=== PATIENT | male | born 1970 ===

== ENCOUNTER 2024-11-22 09:15 | Inpatient (IN) | payer OTHER ==
[~2024-11-22] VITALS: Ht 177.8 cm; Wt 112.0 kg
[2024-11-23] MEDS ORDERED: HydrOXYzine Pamoate 50 MG Cap PO PRN (06:55)
[2024-11-23] MEDS ORDERED: LORazepam 2 MG Tab PO PRN (06:55)
[2024-11-23] MEDS ORDERED: OLANZapine ODT 10 MG Tab MM PRN (06:55)
[2024-11-23] MEDS ORDERED: Ibuprofen 600 MG Tab PO PRN (06:55)
[2024-11-23] MEDS ORDERED: Acetaminophen 325 MG TABLET PO PRN (07:00)
[2024-11-23] MEDS ORDERED: TraZODone HCl 50 MG Tab PO PRN (07:00)
[2024-11-23] MEDS ORDERED: FLU VACC TS2024-25(6MOS UP)/PF 45 MCG/0.5 ML SYRINGE IM SCH (07:00)
[2024-11-23] MEDS ORDERED: Haloperidol 5 MG Tab PO PRN (07:00)
[2024-11-23] MEDS ORDERED: Aluminum Hydroxide 320MG/5ML 473 ML PO PRN (07:00)
[2024-11-23] MEDS ORDERED: Polyethylene Glycol 3350 17 gm PO PRN (07:00)
[2024-11-23] MEDS ORDERED: Melatonin 3 MG Tab PO PRN (07:00)
[2024-11-23] MEDS ORDERED: DiphenhydrAMINE HCl 50 MG Cap PO PRN (07:05)
[2024-11-23] MEDS ORDERED: Calcium Carbonate 500 MG Tab Chew PO PRN (07:05)
[2024-11-23] MEDS ORDERED: Ondansetron 4 MG TAB PO PRN (07:20)
[2024-11-23] MEDS ORDERED: Multivitamins 1 Tab PO SCH (09:00)
[2024-11-23] MEDS ORDERED: Aspir 8181 MG PO ×2 (10:39→10:46)
[2024-11-23] MEDS ORDERED: B COMPLEX FORM0.4 MG (10:40)
[2024-11-23] MEDS ORDERED: BUPR75 PO (10:45)
[2024-11-23] MEDS ORDERED: BUPROPION XL150 M1 PO (10:48)
[2024-11-23] MEDS ORDERED: FENO145 PO (10:49)
[2024-11-23] MEDS ORDERED: FLAX PO (10:49)
[2024-11-23] MEDS ORDERED: INSULANPEN SC (10:50)
[2024-11-23] MEDS ORDERED: LISI20 PO (10:51)
[2024-11-23] MEDS ORDERED: METF500 PO (10:51)
[2024-11-23] MEDS ORDERED: FISH OIL 1,0001 EA10 PO (10:51)
[2024-11-23] MEDS ORDERED: Zocor20 MG PO (10:57)
[2024-11-23] MEDS ORDERED: OZEMPIC1 MG/0.72 SC (10:57)
[2024-11-23] MEDS ORDERED: Lisinopril 20 MG Tab PO ONE (12:10)
[2024-11-23] MEDS ORDERED: Nicotine Polacrilex 2 MG Gum PO PRN (12:10)
--- NOTE | 2024-11-23 13:25 | NUR ---
NEW ADMIT AT 1009 FROM SECURE TRANSPORT FROM [facility] FROM [place], [place]. PT DENIES TO BE SI, HI, AND AVH ON THE TIME OF ARRIVAL. PT WAS ADMITTED FOR PREVIOUS SI IN [facility] AND IS ON AN INVOLUNTAY HOLD. PT A/O X4. WAS IN A DISGRUNTLED MOOD ON ARRIVAL. IF HE WANTS TO KILL HIMSELF NO ONE CAN STOP HIM, PER PT. ANGERY AND FUSTRATED ALSO. PT AND FIANCE MADE A DECISION TO CALL FOR HELP. STATES HAS TROUBLE SLEEPING, EXTREME DEPRESSION, " I'M ON TOP OF MY GAME...DON'T GO TO HIGH BECAUSE I KNOW I'LL CRASH.", RESTLESS AND FIDGITITY. PATIENT'S PLAN WAS TO SHOOT SELF. HAS PUT THE GUN IN HIS MOUTH BEFORE. THE RECOMMENDATION WAS FOR THE PT TO BE INPATIENT IN A PSYCHAITIC FACILITY. PT HAS A FIANCE THAT WAS ABLE TO CHANGE HIS MIND TO GET HELP. "WITHOUT HER I AM GONE." PT ATE LUNCH, GIVEN LISINOPRIL MED AND ON ADMIT B52 PO HELP CALM DOWN. DOES LOOSE TRAIN OF THOUGHT AT TIMES. WILL CONTINUE TO MONITOR. INTRODUCED TO THE UNIT.
[2024-11-23 13:54] VITALS: BP 160/94
[2024-11-23 14:03] VITALS: BP 160/94
[2024-11-23] MEDS ORDERED: MetFORMIN HCl 500 mg PO SCH (17:00)
--- NOTE | 2024-11-23 17:44 | NUR ---
PT A/O X4. PLEASANT AND COOPERAIVE. PT WAS NOT PLEASANT ON ADMIT. HAS SINCE SLEPT AND NOW IN WITH COUNSLER AND THEN WILL EAT HIS DINNER. COMPLIANT WITH MEDS. PT HAS HAD A ROUGH HISTORY PER JARED MCCRAY. PT IS QUITE WHEN UP IN GROUP ROOM. HISTORY OF DIABETES WITH GREAT WEIGHT LOSS. WEIGHT IS 112 KG IS CURRENTLY ON SEMAGLUTIDE. PT DID NOT STATE HOW MUCH HE WEIGHED BEFORE OTHER THAN " A LOT". WILL CONTINUE TO MONITOR AND HOPE TO GET MORE IN DEPTH WITH PT TOMORROW.
[2024-11-23 19:14] VITALS: BP 144/80
[2024-11-23] MEDS ORDERED: Insulin Glargine-Yfgn 100 Unit/mL 3 ML SYR SC SCH (21:00)
--- NOTE | 2024-11-24 04:15 | NUR ---
SHIFT SUMMARY: PATIENT WAS IN HIS ROOM AT THE BEGINNING OF THE SHIFT. RN WENT TO INTRODUCE SELF. PATIENT WAS PLEASANT AND COOPERATIVE WITH CARES. HE DECLINED OFFER TO GO TO FOLLOW UP GROUP AND SNACK AT 1999, STATING THAT HE WAS TIRED AND WANTED TO GO TO SLEEP. HE WAS COMPLIANT WITH MEDICATIONS, INCLUDING INSULIN. HE DENIED THOUGHTS OF SI/HI OR SELF HARMING. HE AGREED TO TALK TO STAFF ABOUT ANY ISSUES OR CONCERNS THAT MIGHT COME UP. HE WAS NOTED TO BE RESTING IN BED QUIETLY WITH EYES CLOSED AND RESPIRATIONS CONFIRMED FOR THE REMAINDER OF THE SHIFT. CONTINUING TO MONITOR FOR SAFETY WITH Q15 MINUTE CHECKS.
[2024-11-24] MEDS ORDERED: Lisinopril 20 MG Tab PO SCH (09:00)
[2024-11-24] MEDS ORDERED: Aspirin 81 MG TabEC PO SCH (09:00)
[2024-11-24] MEDS ORDERED: Atorvastatin 10 MG Tab PO SCH (09:00)
[2024-11-24] MEDS ORDERED: Flax Seed 1,000 MG CAP PO SCH (09:00)
[2024-11-24] MEDS ORDERED: Omega-3 Acid Ethyl Esters 1,000 MG CAP PO SCH (09:00)
[2024-11-24] MEDS ORDERED: buPROPion HCL 150 MG TAB.SR.12H PO SCH (09:00)
[2024-11-24] MEDS ORDERED: Fenofibrate, Micronized 134 MG Capsule PO SCH (09:00)
--- NOTE | 2024-11-24 09:32 | NUR ---
PT A/O X4. IN A PLEASANT MOOD UNTIL EXPLAINING THAT WEEKEND DAYS DO NOT COUNT TOWARDS PT HOLDS. DENIESTO BE SI, HI AND AVH. TONE WAS FRIENDLY IN THE BEGINNING THEN BECAME FIRM AND SLIGHT ISOLATION. PT STATED HE HAS TO CHOOSE HIS WORDS CAREFULLY WHILE IN THE UNIT BECAUSE HE DOESN'T WANT TO BE MISUNDERSTOOD. STATES HAS GOOD FAMILY SUPPORT AND GIRL FRIEND JIM IS GOOD FOR HIM. CLAIMS HE IS BORED OUT OF HIS MIND BEING HERE. CLAIMS THAT THE REPORT OF PUTTING A GUN TO HIS MOUTH IS FALSE HE WASN'T GOING TO KILL HIMSELF. PT HAS A FLAT AFFECT THIS MORNING. WILL CONTINUE TO MONITOR.
[2024-11-24 12:05] VITALS: BP 151/87
[2024-11-24] MEDS ORDERED: Nicotine 21 MG PATCH TOP ONE (16:45)
[2024-11-24 20:11] VITALS: BP 169/99
[2024-11-24] MEDS ORDERED: BuPROPion HCl SR 100 MG TabCR PO SCH (21:00)
--- NOTE | 2024-11-25 05:07 | NUR ---
SHIFT SUMMARY Pt is A&O x4, calm, cooperative, polite, eye contact is appropriate. Pt stated that his mood is "okay, hopeful," affect is open, if somewhat constricted. Pt denies SI, HI, hallucinations. No reported pain. Pt was active on the unit during the evening, watching TV with peers and staff. During assessment interview, pt told writer technical publications that he is very appreciative of [facility] staff, especially after what he experienced in the ED of the sending hospital. Pt received PRN calcium carbonate for heartburn, as well as trazodone and melatonin for sleep. Staff contines to monitor q15m for safety and wellness.
[2024-11-25] MEDS ORDERED: Nicotine 21 MG PATCH TOP SCH (09:00)
[2024-11-25 09:09] VITALS: BP 130/91
--- NOTE | 2024-11-25 10:36 | NUR ---
PT A/O X4. PLEASANT AND COOPERATIVE. IN A POSITIVE AND HAPPY MOOD. REALLY WANTS TO GO HOME TODAY. LAUGHING AND CHEERFUL ALSO. SLEPT "OK" LAST NIGHT. STATES THAT HE IS "EXTREMELY BORED". PT ATE 100% OF BREAKFAST MEAL. STATES "IS READY FOR SOME SUNSHINE". DENIES TO BE SI,HI AND AVH. ACTIVELY PARTICIPATING IN GROUP ROOM WITH GAMES AND EXERCISE AND PUTTING A JIGSAW PUZZLE TOGETHER AND INTERACTING WITH PEERS. WAITING FOR DR TO COME AND MAKE ROUNDS. WILL CONTINUE TO MONITOR FOR SAFETY AND WELLNESS.
[2024-11-25] MEDS ORDERED: BUPR100ER PO (11:55)
--- NOTE | 2024-11-25 16:42 | NUR ---
DISCHARGE NOTE: PT DISCHARGED AT 1424. STEADY GAIT TO CAR. PT A/O X4. PICKED UP BY GIRL FRIEND JIM. GIVEN DISCHARGE INSTRUCTIONS AND EDUCATION. PRESCRIPTIONS CALLED TO [facility] IN [place] @ [phone] AND SPOKE WITH PHARMICIST "KAREEN". BELONGINGS RETURNED TO PT. DECLINES OFFER OF NICOTINE CESSATION COUSELING HE WISHES TO CONTINUE TO SMOKE.
== END 2024-11-25 14:24 | disposition home or self-care (01) | DRG 885 ==
LOC: BHU 09:15
PROVIDERS: ADMIT Psychiatry & Neurology Psychiatry
DX: F33.2 Major depressive disorder, recurrent severe without psychotic features (principal); R45.851 Suicidal ideations; E11.9 Type 2 diabetes mellitus without complications; I10 Essential (primary) hypertension; E78.00 Pure hypercholesterolemia, unspecified; F43.10 Post-traumatic stress disorder, unspecified; Z79.899 Other long term (current) drug therapy; Z79.1 Long term (current) use of non-steroidal anti-inflammatories (NSAID); Z79.4 Long term (current) use of insulin; Z79.82 Long term (current) use of aspirin; Z79.811 Long term (current) use of aromatase inhibitors; Z79.84 Long term (current) use of oral hypoglycemic drugs; Z88.8 Allergy status to other drugs, medicaments and biological substances
CPT/HCPCS: 82947; A9270; J1815